=== PATIENT | male | born 1940 | race Hispanic/Latino ===

== ENCOUNTER 2018-12-02 20:37 | Observation (INO) | payer MEDICARE, OTHER ==
[~2018-12-02] VITALS: Ht 180.3 cm; Wt 77.6 kg
--- OUTSIDE RECORDS SUMMARY | 2018-12-02 20:39 | XMS REPORT ---
Author Author [facility] Address Unknown Phone Unavailable Care Team Providers Care Collection Agent Name Role Phone Unavailable Unavailable Payers Payer Name Policy Type Policy Number Effective Date Expiration Date Problems This patient has no known problems. Allergies, Adverse Reactions, Alerts Allergy Name Allergy Type Status Severity Reaction(s) Onset Date Inactive Date Treating Clinician Comments No Known Allergies DA Active U 2018-09-13 00:00:00 Medications This patient has no known medications.
[2018-12-02] MEDS ORDERED: ASPIRIN 81 MG CHEW TAB PO ONE ×2 (21:00→22:00)
[2018-12-02 21:02] LABS: BASOPHILS % 0.1 % (0.0-1.0); EOSINOPHILS # (AUTO) 0.2 (0.0-0.4); EOSINOPHILS % 2.1 % (0.0-6.0); HEMATOCRIT 31.3 % (38.2-49.6); HEMOGLOBIN 10.4 g/dL (14.0-18.0); LYMPHOCYTES # (AUTO) 1.9 (1.0-3.2); LYMPHOCYTES % 27.7 % (18.0-39.1); MEAN CORPUSCULAR HEMOGLOBIN 28.7 pg (28-32); MEAN CORPUSCULAR HGB CONC 33.2 g/dL (31-35); MEAN CORPUSCULAR VOLUME 86.2 fL (81-99); MONOCYTES # (AUTO) 0.5 (0.2-0.8); MONOCYTES % 7.6 % (4.4-11.3); NEUTROPHILS # (AUTO) 4.3 (2.1-6.9); NEUTROPHILS % 62.1 % (38.7-80.0); PLATELET COUNT 139 x10e3/uL (140-360); RED BLOOD COUNT 3.63 x10e6/uL (4.3-5.7); RED CELL DISTRIBUTION WIDTH 13.4 % (11.7-14.4)
[2018-12-02 21:22] LABS: ALANINE AMINOTRANSFERASE < 6 IU/L (0-55); ALBUMIN 3.5 g/dL (3.5-5.0); ALBUMIN/GLOBULIN RATIO 1.3 (0.8-2.0); ALKALINE PHOSPHATASE 39 IU/L (40-150); ANION GAP 15.9 mmol/L (8-16); BLOOD UREA NITROGEN 25 mg/dL (7-26); BUN/CREATININE RATIO 27 (6-25); CALCIUM 8.9 mg/dL (8.4-10.2); CARBON DIOXIDE 25 mmol/L (22-29); CHLORIDE 104 mmol/L (98-107); CREATINE KINASE 246 IU/L (30-200); CREATININE, SERUM 0.93 mg/dL (0.72-1.25); EST GLOMERULAR FILTRATION RATE > 60 ML/MIN (60-); GLUCOSE 135 mg/dL (74-118); POTASSIUM 3.9 mmol/L (3.5-5.1); SODIUM 141 mmol/L (136-145)
--- NOTE | 2018-12-02 22:03 | Diagnostic Imaging Report ---
EXAMINATION: Head CT without contrast. HISTORY:Fall, altered mental status. COMPARISON:None. TECHNIQUE: Multidetector axial images were obtained from the foramen magnum to the vertex without contrast. The images were reconstructed using brain and bone algorithms. Thin section brain images were reformatted into coronal and sagittal planes. Dose modulation, iterative reconstruction, and/or weight based adjustment of the mA/kV was utilized to reduce the radiation dose to as low as reasonably achievable. Intravenous contrast: None IMAGE QUALITY: Suboptimal evaluation due to motion artifacts particularly at the level of skull base and posterior fossa structures. FINDINGS: Skull/scalp: No lytic or blastic. lesions. No surgical changes. Parenchyma: Nonspecific few, scattered supratentorial white matter hypodensity are likely related to small vessel ischemic changes. No acute hemorrhage, mass or acute major vascular territorial infarct. Arteries: No density suggestive of thrombosis. Atherosclerotic calcification in bilateral carotid siphon. Dural sinuses: No abnormal density suggestive of thrombosis. Ventricles: Moderate compensated dilatation due to volume loss. No hydrocephalus. Extra-axial spaces: Left temporal 4 mm extra-axial calcified lesion, may represent dystrophic calcification or small calcified meningioma. No surrounding edema or mass effect. Brain volume: Mild generalized cerebral volume loss. Craniocervical junction: No mass, Chiari malformation, or basilar invagination. Sella: No mass. Paranasal/mastoid sinuses: Mild mucosal thickening in bilateral ethmoid sinuses. Incidental finding: Round tube like structure in left external auditory canal. IMPRESSION: No acute intracranial abnormality. Mild supratentorial white matter microvascular ischemic changes. Mild generalized cerebral volume loss. Signed by: Dr. Mini Winter M.D. on 12/02/2018 10:00 PM
--- NOTE | 2018-12-02 22:15 | Diagnostic Imaging Report ---
EXAMINATION: CHEST SINGLE (PORTABLE) INDICATION: Chest pain COMPARISON: None FINDINGS: AP view TUBES and LINES: None. LUNGS: Lungs are well inflated. Scattered areas of mildly increased pulmonary interstitial markings. Lungs are clear. There is no evidence of pneumonia or pulmonary edema. PLEURA: No pleural effusion or pneumothorax. HEART AND MEDIASTINUM: The cardiomediastinal silhouette is unremarkable. BONES AND SOFT TISSUES: No acute osseous lesion. Soft tissues are unremarkable. UPPER ABDOMEN: No free air under the diaphragm. IMPRESSION: No acute thoracic radiographic abnormality. Scattered pulmonary scarring/atelectasis. Signed by: Silvestre Carlin DO on 12/02/2018 10:12 PM
--- NOTE | 2018-12-02 22:45 | NUR ---
RECEIVED REPORT FROM MEGAN DOSHI NURSE. PATIENT ARRIVED VIA WHEELCHAIR. FAMILY ACCOMPANIED THE PATIENT. PATIENT IN NO PAIN OR DISTRESS. CALL LIGHT WITHIN REACH.
[2018-12-02 23:00] VITALS: BP 116/69
[2018-12-03 00:06] VITALS: BP 116/69
[2018-12-03] MEDS ORDERED: LOSARTAN POTASS25 MG (03:13)
[2018-12-03] MEDS ORDERED: AZILECT1 MG BLADIN (03:13)
[2018-12-03] MEDS ORDERED: ROPINIROLE HCL1 MG PO (03:13)
[2018-12-03] MEDS ORDERED: CARBIDOPA-LEVO1 EAC4 (03:13)
[2018-12-03] MEDS ORDERED: GABAPENTIN600 MG (03:13)
[2018-12-03] MEDS ORDERED: CARBIDOPA-LEVO1 EAC1 (03:13)
[2018-12-03] MEDS ORDERED: VICTOZA 3-0.6 MG/0.1 INJ (03:13)
[2018-12-03] MEDS ORDERED: METFORMIN HCL500 MG PO (03:13)
[2018-12-03] MEDS ORDERED: AMITRIPTYLINE H25 MG PO (03:13)
[2018-12-03] MEDS ORDERED: FOLIC ACID0.8 M1 PO (03:15)
[2018-12-03] MEDS ORDERED: ASPIR-LOW81 MG (03:15)
[2018-12-03 05:22] VITALS: BP 185/87
--- NOTE | 2018-12-03 07:27 | NUR ---
Gave report to oncoming nurse. Patient in bed. Call light within reach. at bedside
[2018-12-03] MEDS ORDERED: DEXTROSE 50% SYRINGE 50 ML IV PRN (08:15)
[2018-12-03] MEDS ORDERED: FAMOTIDINE 20 MG TAB PO SCH (08:15)
[2018-12-03] MEDS ORDERED: SODIUM CHLORIDE 0.9% 1000ML 1,000 ML IV SCH (08:15)
[2018-12-03] MEDS ORDERED: FAMOTIDINE20 MG PO (08:16)
[2018-12-03 08:28] VITALS: BP 170/93
[2018-12-03 08:54] LABS: BILIRUBIN,URINE NEGATIVE (NEGATIVE); KETONES,URINE NEGATIVE (NEGATIVE); LEUKOCYTE ESTERASE ,URINE NEGATIVE (NEGATIVE); NITRITE,URINE NEGATIVE (NEGATIVE); PROTEIN,URINE DIPSTICK NEGATIVE (NEGATIVE); URINE UROBILINOGEN 0.2 mg/dL (0.2 - 1)
[2018-12-03 08:59] LABS: CLARITY,URINE CLEAR (CLEAR); COLOR,URINE YELLOW (YELLOW)
[2018-12-03] MEDS ORDERED: RASAGILINE 1 MG TAB PO SCH (09:00)
[2018-12-03] MEDS ORDERED: LOSARTAN POTASSIUM 25 MG TAB PO SCH (09:00)
[2018-12-03] MEDS ORDERED: FOLIC ACID 400 MG PO SCH (09:00)
[2018-12-03] MEDS ORDERED: ASPIRIN 81 MG CHEW TAB PO SCH (09:00)
[2018-12-03 09:09] LABS: RBC,URINE 0-5 /HPF (0-5); WBC,URINE (MAN) 0-5 /HPF (0-5)
[2018-12-03 09:10] LABS: BACTERIA,URINE RARE /HPF; EPITHELIAL CELLS,URINE RARE /LPF
[2018-12-03 09:35] VITALS: BP 170/93
[2018-12-03] MEDS: ROPINIROLE HCL 1 MG TAB PO SCH ×2 (09:35→14:29)
[2018-12-03] MEDS: GABAPENTIN 300 MG CAP PO SCH ×2 (09:35→14:29)
[2018-12-03] MEDS ORDERED: INSULIN LISPRO 100 UNIT/1 ML 3ML VIAL SQ SCH (11:30)
[2018-12-03 12:56] VITALS: BP 173/90
[2018-12-03] MEDS ORDERED: CARBIDOPA/LEVODOPA 25/100 TAB PO SCH ×2 (13:00→21:00)
[2018-12-03 15:08] LABS: CREATINE KINASE MB 2.4 ng/mL (0-5.0)
--- NOTE | 2018-12-03 16:04 | Diagnostic Imaging Report ---
EXAMINATION: RIBS UNILAT W/CXR INDICATION: ^evaluate for left rib fractures ^[id number] ^1520 COMPARISON: 12/02/2018 FINDINGS: AP view TUBES and LINES: None. LUNGS: Lungs are well inflated. There is no evidence of pneumonia or pulmonary edema. PLEURA: No pleural effusion or pneumothorax. HEART AND MEDIASTINUM: The cardiomediastinal silhouette is unremarkable. BONES AND SOFT TISSUES: No acute osseous lesion. Soft tissues are unremarkable. UPPER ABDOMEN: No free air under the diaphragm. IMPRESSION: No acute thoracic abnormality. No left-sided rib fracture visualized. Signed by: Dr. Nelson Sena MD on 12/03/2018 4:01 PM
[2018-12-03 16:48] VITALS: BP 177/92
[2018-12-03] MEDS ORDERED: AMITRIPTYLINE HCL 25 MG TAB PO SCH (21:00)
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
--- NOTE | 2018-12-04 02:52 | Discharge Summary ---
ADMISSION DIAGNOSES: Chest pain, Parkinson disease, hypertension, type 2 diabetes. DISCHARGE DIAGNOSES: Chest pain, Parkinson disease, hypertension, type 2 diabetes, rule out ACS. HISTORY: Type 2 diabetes, hypertension, Parkinson disease. SURGICAL HISTORY: Cholecystectomy and neck surgery. FAMILY HISTORY: The patient's brother has diabetes. SOCIAL HISTORY: Occasional alcohol use and cigar smoking. HOSPITAL COURSE: A 78-year-old male admits with complaints of substernal intermittent chest pain that began last night while sleeping. The pain was sharp for about 10 minutes and then resolved. He denied associated nausea, vomiting, diaphoresis, or dizziness. The pain radiated to his back. On admission, EKG was normal sinus rhythm. Troponins were negative x3. The patient was given aspirin. Chest x-ray was negative. Repeat chest x-ray was ordered per Dr. Bernal, which showed no rib fractures. CT of the brain showed no acute abnormalities. Echo showed an EF of 60% to 65%. The patient will discharge home and follow up with primary care in 1 to 2 weeks. He was given a prescription for Pepcid and he already takes aspirin at home. His lipid panel was within normal limits. The patient understands discharge instructions and agrees to plan. Vital signs stable, the patient afebrile. Dictated by Cristal Harper NP MD [facility]/YAA /[id number]
== END 2018-12-03 18:28 | disposition home or self-care (01) ==
LOC: ER 20:37 → ERHOLD 22:24 → MED/SURG 22:44
PROVIDERS: ADMIT Internal Medicine; ATTEND Internal Medicine
DX: R07.89 Other chest pain (principal); G20 Parkinson's disease; I10 Essential (primary) hypertension; E11.9 Type 2 diabetes mellitus without complications; Z83.3 Family history of diabetes mellitus; D69.6 Thrombocytopenia, unspecified; Z91.81 History of falling
CPT/HCPCS: 36415 ×2; 70450; 71045; 71101; 80053; 80061; 81001; 82550 ×2; 82553 ×2; 82948; 84484 ×2; 85025; 93005; 93306; 99284; G0378 ×2

== ENCOUNTER → 2019-03-29 | Day surgery (SDC) | payer MEDICARE, OTHER ==
[~2019-03-29] MED LIST: ACETAMINOPHEN 1000 MG/100 ML IV ONE; ACETAMINOPHEN325 M1 PO; ALPHA LIPOIC A200 MG PO; AMITRIPTYLINE H25 MG PO; AMLODIPINE BESYL5 MG PO; ASPIR-LOW81 MG; AZILECT1 MG BLADIN; B&O 60MG R/S 60 MG SUPP PR ONE; BACLOFEN10 MG PO; CARBIDOPA-LEVO1 EAC1 PO; CARBIDOPA-LEVO1 EAC4; CARBIDOPA-LEVO1 EACH PO; CEFAZOLIN SOD 1 GM/NS 50ML 50 ML IV ONE; CLARITIN PO; DEXAMETHASONE SOD PHOS INJ 4 MG/ML VIAL ONE; DULCOLAX SUPP10 MG RC; FAMOTIDINE20 MG PO; FLOMAX0.4 MG PO; FOLIC ACID0.8 M1 PO; GABAPENTIN600 MG; IOPAMIDOL 300MG/ML 50ML INFUS..BTL IV ONE; IPRAT-ALBUT 0.5-3 ML INH; LACTULOSE20 GM/30 M PO; LIDOCAINE HCL 2% LOCAL INJ 5 ML SDV VIAL INJ ONE; LOSARTAN POTASS25 MG PO; MELATONIN3 MG PO; METFORMIN HCL500 MG PO; ONDANSETRON HCL INJ 2MG/ML 2ML 2 MG/ML VIAL ONE; PANTOPRAZOLE SO40 MG PO; POLYOX WSR-3011 GM PO; PROPOFOL IV EMULSION 10 MG/ML 50 ML VIAL ONE; ROPINIROLE HCL1 MG PO; SEVOFLURANE INHAL SOLN 250 ML PEN BTL ONE; VICTOZA 3-0.6 MG/0.1 INJ; VITAMIN B122500 MCG PO; VITAMIN D34000 UNIT PO; ZOLOFT50 MG PO
[2019-03-29 07:27] LABS: ANION GAP 11.1 mmol/L (8-16); BLOOD UREA NITROGEN 18 mg/dL (7-26); BUN/CREATININE RATIO 24 (6-25); CALCIUM 9.4 mg/dL (8.4-10.2); CARBON DIOXIDE 29 mmol/L (22-29); CHLORIDE 108 mmol/L (98-107); CREATININE, SERUM 0.74 mg/dL (0.72-1.25); EST GLOMERULAR FILTRATION RATE > 60 ML/MIN (60-); GLUCOSE 134 mg/dL (74-118); POTASSIUM 4.1 mmol/L (3.5-5.1); SODIUM 144 mmol/L (136-145)
--- NOTE | 2019-03-29 07:54 | Diagnostic Imaging Report ---
EXAMINATION: CHEST 2 VIEWS INDICATION: Cysto surgery ^PRE-OP ^[id number] ^0730 ^ACU 3 COMPARISON: Chest x-ray 12/03/2018 FINDINGS: PA and lateral views TUBES and LINES: None. LUNGS: Lungs are well inflated. There is no evidence of pneumonia or pulmonary edema. PLEURA: No pleural effusion or pneumothorax. Stable eventration of the right diaphragm. HEART AND MEDIASTINUM: The heart is normal in size. Descending thoracic aorta is tortuous and stable in morphology. BONES AND SOFT TISSUES: No focal osseous lesions. Bridging bone between the right third and fourth ribs is stable. Stable degenerative changes of the left shoulder. Soft tissues are unremarkable. UPPER ABDOMEN: Unremarkable. IMPRESSION: No acute thoracic abnormality. Signed by: Dr. Carmen Ahuja MD on 03/29/2019 7:51 AM
[2019-03-29 11:00] VITALS: BP 125/59
--- NOTE | 2019-03-29 22:28 | Operative Report ---
DATE OF PROCEDURE: 03/29/2019 SURGEON: Rochelle Braun MD SERVICE: Urology. PREOPERATIVE DIAGNOSES: 1. Benign prostatic hyperplasia with obstruction. 2. Recurrent urinary tract infection. 3. Urinary incontinence. 4. Altered mental status. POSTOPERATIVE DIAGNOSES: 1. Benign prostatic hyperplasia with obstruction. 2. Recurrent urinary tract infection. 3. Urinary incontinence. 4. Altered mental status. 5. Urethral stricture. OPERATION PERFORMED: 1. Cystoscopy and urethral dilation. 2. Bilateral retrograde pyelograms under fluoroscopic control. This is not related to the obstructing BPH. 3. Interpretation of x-ray, radiologist not present. 4. Supervision of fluoroscopy, radiologist not present. 5. Transurethral resection of the prostate, removed with the use of plasma. BOWLING BALL GRADER: None. ANESTHESIA: General. CLINICAL INDICATION NOTE: This is a 79-year-old halfway patient with remote history of UTIs and BPH with obstruction as well and some hematuria. He was brought for assessment and removal of the obstructing prostate gland. This was discussed with his relative and the patient's potential benefit and postop plan was explained and accepted. DESCRIPTION OF PROCEDURE AND FINDINGS: After appropriate level of anesthesia was achieved, the patient was placed in lithotomy position, prepped and draped in usual sterile fashion. Urethra inspected. It is extremely tight and could not accommodate the scope. It was dilated to 28-Chinese. Following this, the scope was inserted. Bladder outlet is obstructed by trilobar prostate. Bladder is trabeculated. No tumor or foreign bodies present in the bladder. Inflammatory changes are present. Cone-tipped catheter was used in a bilateral retrograde. It was done without any difficulty. Both upper tracts are unremarkable. Following this, the resectoscope was inserted and with the use of the plasma, the prostatic tissue was removed. The posterior lobe was done 1st and then the two lateral lobes. Care was taken not to go distal to the verumontanum. Following this, any visible bleeding ports were carefully coagulated and a 22-Chinese 30 mL 3-way Aguilar catheter was inserted and connected to continuous irrigation with water. The patient was transferred in satisfactory condition to recovery room. Follow up and postop instructions given. Rochelle Braun MD [place]/MODL /[id number]
== END | disposition home or self-care (01) ==
LOC: OR 06:29
PROVIDERS: ATTEND Urology
DX: N40.1 Benign prostatic hyperplasia with lower urinary tract symptoms (principal); N13.8 Other obstructive and reflux uropathy; N39.0 Urinary tract infection, site not specified; N35.919 Unspecified urethral stricture, male, unspecified site; N32.89 Other specified disorders of bladder; R41.82 Altered mental status, unspecified; I10 Essential (primary) hypertension; E11.9 Type 2 diabetes mellitus without complications; G89.29 Other chronic pain; M48.00 Spinal stenosis, site unspecified; J44.9 Chronic obstructive pulmonary disease, unspecified; K21.9 Gastro-esophageal reflux disease without esophagitis; E78.5 Hyperlipidemia, unspecified; R00.1 Bradycardia, unspecified; F32.9 Major depressive disorder, single episode, unspecified; G20 Parkinson's disease; Z79.84 Long term (current) use of oral hypoglycemic drugs
CPT/HCPCS: 36415; 52601; 71046; 74420; 80048; 82948; 93005; C1758 ×2; J0131; J0690; J1100; J2001; J2405; J2704; Q9967

== ENCOUNTER → 2020-08-28 | Day surgery (SDC) | payer MEDICARE, OTHER ==
[~2020-08-28] MED LIST changes: -ACETAMINOPHEN 1000 MG/100 ML IV ONE; -CEFAZOLIN SOD 1 GM/NS 50ML 50 ML IV ONE; -DEXAMETHASONE SOD PHOS INJ 4 MG/ML VIAL ONE; +FENTANYL CITRATE/PF 100MCG/2 ML INJ ONE; +LASIX40 MG PO; +LYRICA50 MG PO; +NEURONTIN400 MG PO; +POTASSIUM CHLO10 ME1 PO; +POVIDONE IODINE 0.05% 0.05 % ML PO ONE; +PROPOFOL IV EMULSION 10 MG/ML 20 ML VIAL ONE; -PROPOFOL IV EMULSION 10 MG/ML 50 ML VIAL ONE; +SODIUM CHLORIDE 0.9% 50ML 50 ML ONE; +TOBRAMYCIN 40 MG/ML 2ML VIAL ONE
[2020-08-28 11:20] VITALS: BP 135/61
== END | disposition home or self-care (01) ==
LOC: OR 06:52
PROVIDERS: ATTEND Urology
DX: N40.1 Benign prostatic hyperplasia with lower urinary tract symptoms (principal); N13.8 Other obstructive and reflux uropathy; N39.0 Urinary tract infection, site not specified; N35.912 Unspecified bulbous urethral stricture, male; N32.89 Other specified disorders of bladder; G20 Parkinson's disease; Z98.890 Other specified postprocedural states; I10 Essential (primary) hypertension; E11.9 Type 2 diabetes mellitus without complications; E78.5 Hyperlipidemia, unspecified; K21.9 Gastro-esophageal reflux disease without esophagitis; F41.9 Anxiety disorder, unspecified; Z20.822 Contact with and (suspected) exposure to COVID-19; Z88.8 Allergy status to other drugs, medicaments and biological substances; Z79.84 Long term (current) use of oral hypoglycemic drugs
CPT/HCPCS: 36415; 52005; 52601; 74420; 82948; J0690; J2001; J2405; J2704; J3010; J3260; Q9967; U0002

== ENCOUNTER → 2021-04-23 | Day surgery (SDC) | payer MEDICARE, OTHER ==
[~2021-04-23] MED LIST changes: +DEXAMETHASONE SOD PHOS INJ 4 MG/ML SDV ONE; +ERGOCALCIFEROL PO; -FENTANYL CITRATE/PF 100MCG/2 ML INJ ONE; +GLYCOLAX POWDER PO; +OMEPRAZOLE20 M1 PO; -TOBRAMYCIN 40 MG/ML 2ML VIAL ONE; +ULTRAM 50MG50 MG PO; +VITAMIN B12 PO
[2021-04-23 07:27] LABS: BASOPHILS % 0.3 % (0.0-1.0); EOSINOPHILS # (AUTO) 0.2 (0.0-0.4); EOSINOPHILS % 2.1 % (0.0-6.0); HEMATOCRIT 34.7 % (38.2-49.6); HEMOGLOBIN 11.3 g/dL (14.0-18.0); LYMPHOCYTES # (AUTO) 3.5 (1.0-3.2); LYMPHOCYTES % 40.7 % (18.0-39.1); MEAN CORPUSCULAR HEMOGLOBIN 28.3 pg (28-32); MEAN CORPUSCULAR HGB CONC 32.6 g/dL (31-35); MEAN CORPUSCULAR VOLUME 86.8 fL (81-99); MONOCYTES # (AUTO) 0.6 (0.2-0.8); MONOCYTES % 7.3 % (4.4-11.3); NEUTROPHILS # (AUTO) 4.3 (2.1-6.9); NEUTROPHILS % 49.4 % (38.7-80.0); PLATELET COUNT 166 x10e3/uL (140-360); RED CELL DISTRIBUTION WIDTH 13.1 % (11.7-14.4)
[2021-04-23 07:45] LABS: ANION GAP 10.9 mmol/L (8-16); CREATININE, SERUM 1.01 mg/dL (0.72-1.25); POTASSIUM 3.9 mmol/L (3.5-5.1)
[2021-04-23 10:45] VITALS: BP 135/66
== END | disposition home or self-care (01) ==
LOC: OR 06:35
PROVIDERS: ATTEND Urology
DX: N40.1 Benign prostatic hyperplasia with lower urinary tract symptoms (principal); N13.8 Other obstructive and reflux uropathy; R35.0 Frequency of micturition; N39.0 Urinary tract infection, site not specified; N32.89 Other specified disorders of bladder; I10 Essential (primary) hypertension; E11.9 Type 2 diabetes mellitus without complications; I44.0 Atrioventricular block, first degree; R00.1 Bradycardia, unspecified; J45.909 Unspecified asthma, uncomplicated; E78.5 Hyperlipidemia, unspecified; G20 Parkinson's disease; K21.9 Gastro-esophageal reflux disease without esophagitis; F41.9 Anxiety disorder, unspecified; Z20.822 Contact with and (suspected) exposure to COVID-19; Z79.84 Long term (current) use of oral hypoglycemic drugs; Z79.899 Other long term (current) drug therapy
CPT/HCPCS: 36415; 52005; 52601; 71046; 74420; 80048; 82948; 85025; 93005; C1758; J0690; J1100; J2001; J2405; J2704; Q9967; U0002